=== PATIENT | male | born 1995 | race Caucasian/White ===

== ENCOUNTER 2016-12-13 14:05 | Emergency (ER) | payer BC ==
[~2016-12-13] VITALS: Ht 175.3 cm; Wt 79.1 kg
[2016-12-13 14:06] VITALS: TEMP 36.9; Ht 175.3 cm; Wt 79.1 kg
[2016-12-13] MEDS ORDERED: SODIUM CHLORIDE 0.9% 1000ML 1,000 ML IV STA (15:12)
[2016-12-13] MEDS ORDERED: KETOROLAC TROMETHAMINE 30 MG/ML VIAL IV STA (15:12)
[2016-12-13] MEDS ORDERED: MoRPHine SULFATE 4 MG/ML 1 ML CARP\\VIAL IV STA (15:12)
[2016-12-13] MEDS ORDERED: ONDANSETRON INJ 2 MG/ML 2 ML VIAL IV STA (15:12)
[2016-12-13] MEDS ORDERED: MoRPHine SULFATE 4 MG/ML 1 ML CARP\\VIAL IV PRN (15:15)
[2016-12-13] MEDS ORDERED: CETI10TA84 PO (15:36)
[2016-12-13 15:37] LABS: BASO % 0.5 %; BASO ABS # 0.07 K/uL (0-0.2); COMPLETE YES; EOS % 1.8 %; HEMATOCRIT 45.6 % (42-52); IG% 0.3 %; LYMPH % 26.2 %; LYMPH ABS # 3.38 K/uL (1.2-3.4); MEAN CELL VOLUME 88.2 fL (80-100); MEAN CORPUSCULAR HEMOGLOBIN 32.3 pg (25-34); MEAN CORPUSCULAR HGB CONC 36.6 g/dl (32-36); MONO % 8.4 %; NEUT % 62.8 %; PLATELET COUNT 246 K/uL (130-400); RED BLOOD COUNT 5.17 M/uL (4.7-6.1); WHITE BLOOD COUNT 12.88 K/uL (4.8-10.8)
[2016-12-13 15:55] LABS: ALT/SGPT 28 U/L (12-78); BLOOD UREA NITROGEN 15 mg/dl (7-18); BUN/CREATININE RATIO 12.4 (10-20); CALCIUM 9.1 mg/dl (8.5-10.1); CARBON DIOXIDE 22 mmol/L (21-32); CHLORIDE 107 mmol/L (98-107); GLUCOSE 147 mg/dl (70-99); POTASSIUM 3.5 mmol/L (3.5-5.1); SODIUM 141 mmol/L (136-145)
[2016-12-13 16:00] LABS: ALKALINE PHOSPHATASE 61 U/L (45-117); AST/SGOT 18 U/L (15-37)
[2016-12-13] MEDS ORDERED: PROMETHAZINE HCL INJ 25 MG/ML 1 ML VIAL ONE (16:00)
[2016-12-13] MEDS ORDERED: PROMETHAZINE HCL INJ 25 MG in SODIUM CHLORIDE 0.9% 50ML 50 ML IV STA (16:00)
[2016-12-13 16:02] LABS: URINE APPEARANCE CLEAR (CLEAR); URINE BILIRUBIN NEG (NEG); URINE COLOR DK YELLOW; URINE EPITHELIAL CELL AUTO 20-30 /lpf (0-5); URINE NITRITE NEG (NEG); URINE SPECIFIC GRAVITY 1.023 (1.000-1.030); UROBILINOGEN NEG (NEG)
--- NOTE | 2016-12-13 16:04 | DIAGNOSTIC IMAGING REPORT ---
KUB HISTORY: RLQ pain. Hematuria - possible stone? COMPARISON: None. FINDINGS: The bowel gas pattern is unremarkable. There are no dilated loops of small bowel to suggest an obstruction. There are a few punctate stones within the kidneys. No stones within the left ureter. There is a 2 mm punctate calcification within the right deep pelvis lateral to the coccyx. This could represent a ureterovesical junction stone. No pneumoperitoneum or pneumatosis. IMPRESSION: 1. A 2 mm punctate calcification within the right deep pelvis which may represent a ureterovesical junction stone. 2. Bilateral nephrolithiasis. Electronically signed by: Eddie Mccormick M.D. 12/13/2016 4:02 PM Dictated Date/Time: 12/13/2016 4:01 PM
[2016-12-13] MEDS ORDERED: OPTIRAY 320 IV PRN (16:15)
[2016-12-13 16:16] LABS: MANUAL MICROSCOPIC REQUIRED? NO; REVIEW REQ? NO
--- NOTE | 2016-12-13 17:13 | DIAGNOSTIC IMAGING REPORT ---
CT ABD/PELVIS IV CONTRAST ONLY CLINICAL HISTORY: Right lower quadrant abdominal pain COMPARISON STUDY: KUB dated 12/13/2016 TECHNIQUE: Following the IV administration of 116 mL of Optiray-320, CT scan of the abdomen and pelvis was performed from the lung bases to the proximal femurs. Images are reviewed in the axial, sagittal, and coronal planes. IV contrast was administered without complication. CT DOSE: 323.78 mGy.cm FINDINGS: Lower chest: The heart is normal in size and configuration, without pericardial effusion. The lung bases and pleural spaces are clear. Liver: The contrast-enhanced liver is normal in size, contour, and attenuation. There is no intrahepatic biliary ductal dilatation. The hepatic veins and portal veins are patent. Gallbladder: Unremarkable. Spleen: Normal in size and attenuation. Pancreas: Unremarkable. Adrenal glands: Unremarkable. Kidneys: 2 tiny right renal calculi are visualized. There is mild right-sided hydronephrosis and hydroureter. There is a 2 mm calculus at the level of the right ureterovesical junction. Bowel: There are no transition zones to indicate bowel obstruction. There is no evidence of acute appendicitis. There is no evidence of acute diverticulitis. Peritoneum: There is no intraperitoneal free air or abdominal ascites. There is a tiny fat-containing umbilical hernia. Vasculature: The abdominal aorta is normal in course and caliber. Adenopathy: None. Pelvic viscera: The bladder, and pelvic viscera are unremarkable. Skeletal structures: No destructive osseous lesions are seen. IMPRESSION: 1. Tiny right renal calculi 2. 2 mm calculus at the level of the right ureteral vesicle junction with mild secondary obstructive changes 3. Normal appendix 4. No evidence of bowel obstruction. No evidence of free air. Electronically signed by: Carroll Quintanilla M.D. 12/13/2016 5:12 PM Dictated Date/Time: 12/13/2016 5:07 PM
[2016-12-13] MEDS ORDERED: OXYC1TAB3 PO (17:33)
[2016-12-13] MEDS ORDERED: ONDA4TAB10 SL (17:33)
--- NOTE | 2016-12-13 17:47 | EMERGENCY ROOM VISIT NOTE ---
History First contact with patient: 15:06 Chief Complaint: ABDOMINAL PAIN Stated Complaint: LOWER RT ABD. PAIN, VOMITING Nursing Triage Summary: N/V/D, RLQ pain since 1130 today. History of Present Illness The patient is a 21 year old male who presents to the Emergency Room with complaints of right lower quadrant abdominal pain that is constant within the right lower quadrant and lower abdominal region. The patient reports that he had mild nausea last night which quickly resolved. He reports that around 11: 30 AM today, the abdominal pain started to worsen. He now reports that any movement, including walking and bending over, worsens his discomfort. He rates his pain an 8 out of 10. He denies any pain radiating into the back. He denies any fevers or chills. The patient denies any prior history of GI disease except for mild GERD. He denies any urinary symptoms. His stools were soft this morning. He denies any blood or mucus. He has had several episodes of bilious vomiting. Review of Systems HEENT: Denies dizziness, visual problems, hearing loss, tinnitus. Denies difficulty swallowing or oral lesions. PULMONARY: Denies cough, shortness of breath, sputum production or hemoptysis. CARDIOVASCULAR: Denies chest pain, palpitations, dyspnea on exertion, orthopnea or peripheral edema. GASTROINTESTINAL: See history of present illness GENITOURINARY: Denies dysuria, frequency, urgency or nocturia. NEUROLOGIC: Denies history of epilepsy, CVA, TIA or chronic headaches. MUSCULOSKELETAL: Denies history of joint tenderness/swelling. SKIN: Denies rashes or lesions. PSYCHIATRIC: Denies history of depression or mental illness. ENDOCRINE: Denies history of diabetes or thyroid disorders. Past Medical/Surgical History Medical Problems: (1) Asthma Surgical Problems: (1) History of wisdom tooth extraction Family History No significant family history Social History Smoking Status: Never Smoker Alcohol Use: occasionally Marital Status: single Occupation Status: [employer] student Current/Historical Medications Scheduled Cetirizine (Zyrtec), 10 MG PO DAILY Ondasetron Odt (Zofran Odt), 4 MG SL Q6H Scheduled PRN Oxycodone Ir (Roxicodone Ir), 1-2 TAB PO Q4H PRN for Pain Allergies Coded Allergies: No Known Allergies (Unverified , 12/13/16) Physical Exam Vital Signs Date Time Temp Pulse Resp B/P Pulse Ox O2 Delivery O2 Flow Rate FiO2 12/13/16 16:50 91 15 122/75 100 Room Air 12/13/16 15:35 86 16 141/83 100 12/13/16 14:06 36.9 89 19 151/87 100 Room Air Physical Exam CONSTITUTIONAL: Healthy and well nourished. Alert and oriented X 3 with positive affect. She appears in moderate discomfort from pain and nausea. HEENT: Normocephalic, atraumatic. Pupils equal, round and reactive. Ears and nares are clear. No scleral icterus or conjunctival injection/pallor. NECK: Full active range of motion without discomfort. No nuchal rigidity. LYMPHATICS: No adenopathy appreciated. RESPIRATORY: Clear to auscultation bilaterally with no wheezing, crackles, rhonchi or stridor. CARDIOVASCULAR: Regular rate and rhythm with no murmurs, rubs or gallops. GASTROINTESTINAL: Bowel sounds present in all quadrants. Patient has been positive McBurney's point tenderness. Negative Rincon I and. Negative Rovsing sign. Negative CVA tenderness. Positive psoas sign. Positive heel tap. No rigidity, guarding or rebound. MUSCULOSKELETAL: Full range of motion of all joints without discomfort. INTEGUMENTARY: No rash or other significant dermatologic conditions noted. HEMATOLOGIC: No ecchymosis or petechiae noted. NEUROLOGIC: No focal neurologic deficits noted. Medical Decision & Procedures ER Provider Diagnostic Interpretation: Initial KUB shows a possible 2 mm calcification near the bladder/UVJ region. Radiologist report is as follows: KUB HISTORY: RLQ pain. Hematuria - possible stone? COMPARISON: None. FINDINGS: The bowel gas pattern is unremarkable. There are no dilated loops of small bowel to suggest an obstruction. There are a few punctate stones within the kidneys. No stones within the left ureter. There is a 2 mm punctate calcification within the right deep pelvis lateral to the coccyx. This could represent a ureterovesical junction stone. No pneumoperitoneum or pneumatosis. IMPRESSION: 1. A 2 mm punctate calcification within the right deep pelvis which may represent a ureterovesical junction stone. 2. Bilateral nephrolithiasis. Enhanced CT of the abdomen and pelvis does not show any evidence for acute appendicitis. A 2 mm right UVJ stone is again seen. Radiologist report is as follows: CT ABD/PELVIS IV CONTRAST ONLY CLINICAL HISTORY: Right lower quadrant abdominal pain COMPARISON STUDY: KUB dated 12/13/2016 TECHNIQUE: Following the IV administration of 116 mL of Optiray-320, CT scan of the abdomen and pelvis was performed from the lung bases to the proximal femurs. Images are reviewed in the axial, sagittal, and coronal planes. IV contrast was administered without complication. CT DOSE: 323.78 mGy.cm FINDINGS: Lower chest: The heart is normal in size and configuration, without pericardial effusion. The lung bases and pleural spaces are clear. Liver: The contrast-enhanced liver is normal in size, contour, and attenuation. There is no intrahepatic biliary ductal dilatation. The hepatic veins and portal veins are patent. Gallbladder: Unremarkable. Spleen: Normal in size and attenuation. Pancreas: Unremarkable. Adrenal glands: Unremarkable. Kidneys: 2 tiny right renal calculi are visualized. There is mild right-sided hydronephrosis and hydroureter. There is a 2 mm calculus at the level of the right ureterovesical junction. Bowel: There are no transition zones to indicate bowel obstruction. There is no evidence of acute appendicitis. There is no evidence of acute diverticulitis. Peritoneum: There is no intraperitoneal free air or abdominal ascites. There is a tiny fat-containing umbilical hernia. Vasculature: The abdominal aorta is normal in course and caliber. Adenopathy: None. Pelvic viscera: The bladder, and pelvic viscera are unremarkable. Skeletal structures: No destructive osseous lesions are seen. IMPRESSION: 1. Tiny right renal calculi 2. 2 mm calculus at the level of the right ureteral vesicle junction with mild secondary obstructive changes 3. Normal appendix 4. No evidence of bowel obstruction. No evidence of free air. Laboratory Results 12/13/16 15:30 Red Blood Count 5.17, Mean Corpuscular Volume 88.2, Mean Corpuscular Hemoglobin 32.3, Mean Corpuscular Hemoglobin Concent 36.6, Mean Platelet Volume 11.0, Neutrophils (%) (Auto) 62.8, Lymphocytes (%) (Auto) 26.2, Monocytes (%) (Auto) 8.4, Eosinophils (%) (Auto) 1.8, Basophils (%) (Auto) 0.5, Neutrophils # (Auto) 8.08, Lymphocytes # (Auto) 3.38, Monocytes # (Auto) 1.08, Eosinophils # (Auto) 0.23, Basophils # (Auto) 0.07 12/13/16 15:30 Test 12/13/16 00:00 12/13/16 15:30 Urine Color DK YELLOW Urine Appearance CLEAR (CLEAR) Urine pH 5.0 (4.5-7.5) Urine Specific [place] 1.023 (1.000-1.030) Urine Protein 1+ (NEG) Urine Glucose (UA) NEG (NEG) Urine Ketones NEG (NEG) Urine Occult Blood 3+ (NEG) Urine Nitrite NEG (NEG) Urine Bilirubin NEG (NEG) Urine Urobilinogen NEG (NEG) Urine Leukocyte Esterase NEG (NEG) Urine WBC (Auto) 1-5 /hpf (0-5) Urine RBC (Auto) 10-30 /hpf (0-4) Urine Hyaline Casts (Auto) 5-10 /lpf (0-5) Urine Epithelial Cells (Auto) 20-30 /lpf (0-5) Urine Bacteria (Auto) NEG (NEG) White Blood Count 12.88 K/uL (4.8-10.8) Red Blood Count 5.17 M/uL (4.7-6.1) Hemoglobin 16.7 g/dL (14.0-18.0) Hematocrit 45.6 % (42-52) Mean Corpuscular Volume 88.2 fL (80-100) Mean Corpuscular Hemoglobin 32.3 pg (25-34) Mean Corpuscular Hemoglobin Concent 36.6 g/dl (32-36) Platelet Count 246 K/uL (130-400) Mean Platelet Volume 11.0 fL (7.4-10.4) Neutrophils (%) (Auto) 62.8 % Lymphocytes (%) (Auto) 26.2 % Monocytes (%) (Auto) 8.4 % Eosinophils (%) (Auto) 1.8 % Basophils (%) (Auto) 0.5 % Neutrophils # (Auto) 8.08 K/uL (1.4-6.5) Lymphocytes # (Auto) 3.38 K/uL (1.2-3.4) Monocytes # (Auto) 1.08 K/uL (0.11-0.59) Eosinophils # (Auto) 0.23 K/uL (0-0.5) Basophils # (Auto) 0.07 K/uL (0-0.2) RDW Standard Deviation 38.5 fL (36.4-46.3) RDW Coefficient of Variation 12.0 % (11.5-14.5) Immature Granulocyte % (Auto) 0.3 % Immature Granulocyte # (Auto) 0.04 K/uL (0.00-0.02) Anion Gap 12.0 mmol/L (3-11) Est Creatinine Clear Calc Drug Dose 97.4 ml/min Estimated GFR () 99.6 Estimated GFR (Non- 85.9 BUN/Creatinine Ratio 12.4 (10-20) Calcium Level 9.1 mg/dl (8.5-10.1) Total Bilirubin 0.5 mg/dl (0.2-1) Direct Bilirubin < 0.1 mg/dl (0-0.2) Aspartate Amino Transf (AST/SGOT) 18 U/L (15-37) Alanine Aminotransferase (ALT/SGPT) 28 U/L (12-78) Alkaline Phosphatase 61 U/L (45-117) Total Protein 7.9 gm/dl (6.4-8.2) Albumin 4.4 gm/dl (3.4-5.0) Lipase 93 U/L (73-393) The above labs were reviewed. Medications Administered Medications (Trade) Dose Ordered Sig/Andrews Route Start Time Stop Time Status Last Admin Dose Admin Ketorolac Tromethamine 30 mg 30 mg NOW STAT IV 12/13/16 15:12 12/13/16 15:15 DC 12/13/16 15:30 30 MG Sodium Chloride (Nss 1000ml) 1,000 ml @ 999 mls/hr Q1H1M STAT IV 12/13/16 15:12 12/13/16 16:12 DC 12/13/16 15:31 999 MLS/HR Ondansetron HCl (Zofran Inj) 4 mg NOW STAT IV 12/13/16 15:12 12/13/16 15:15 DC 12/13/16 15:30 4 MG Morphine Sulfate (MoRPHine SULFATE INJ) 4 mg NOW STAT IV 12/13/16 15:12 12/13/16 15:15 DC 12/13/16 15:31 4 MG Promethazine HCl (Phenergan Inj) 25 mg STK-MED ONCE .ROUTE 3/22/17 16:00 12/13/16 16:05 DC 12/13/16 16:07 25 MG Procedure 1. IV hydration: The patient received a liter normal saline bolus 2. IV medications: The patient initially was administered Toradol 30 mg, morphine 4 mg and Zofran 4 mg IVP. Because of persistent nausea and vomiting, he was then administered Phenergan 25 mg IVP. ED Course Patient history and physical exam were performed. Nurse's notes were reviewed. Vital signs were reviewed and normal. The patient is currently afebrile. IV was established, and labs were drawn. Review of labs shows a leukocytosis with a left shift and bandemia. Urinalysis shows hematuria without signs of infection. The patient was hydrated with normal saline, and received IV medications as discussed in the previous Procedure section. Then approximately 10 minutes after being given IV Zofran, the patient vomited his oral contrast. I asked his nurse to refrain from further oral contrast into his antiemetics had a chance to work. Because he was still further nauseated, he was given Phenergan 25 mg IVP. I was also advised that the patient had a large amount of blood in his urine dip. Although the patient does have symptoms concerning for appendicitis, I did elect to get a KUB x-ray which showed a possible 2 mm right UVJ stone. On reexam, the patient did report feeling somewhat better with minimal nausea and pain rated a 4 out of 10. Repeat examination still showed his oral exam findings concerning for possible appendicitis. At this point, a CT of the abdomen and pelvis with IV contrast was further ordered, and showed no evidence for acute appendicitis or other acute findings. On reassessment, the patient reported significant relief of his pain and nausea , rating his discomfort a 2 out of 10 without nausea. He requested discharge home. The patient was instructed to drink plenty of fluids. A urine strainer was provided. He also received prescriptions for OxyIR 5 mg and Zofran 4 mg ODT. He was instructed to return to the emergency department for any uncontrollable pain, vomiting or developing fever. The patient was happy with plan of care, and voiced understanding of all discharge instructions. Medical Decision Patient presents with symptoms that were most consistent with acute appendicitis. However, imaging studies today definitely show a 2 mm right UVJ stone. CT scan does not show any evidence for acute appendicitis. Patient does have a moderate leukocytosis with left shift and bandemia. At this point, I do not feel that surgical consultation is warranted. A CT scan is otherwise unremarkable except for the ureteral calculus. Other labs are also not suggestive of pancreatitis or cholecystitis. [facility] Monitoring Program Search Results: patient reviewed within database, no issues identified Impression Primary Impression: Ureteral calculus, right Departure Information Prescriptions Ondasetron Odt (ZOFRAN ODT) 4 Mg Tab 4 MG SL Q6H for Nausea, #10 TAB Prov: Ang Goodwin PA 12/13/16 Oxycodone Ir (Roxicodone Ir) 5 Mg Tab 1-2 TAB PO Q4H Y for Pain, #15 TAB For Initial Treatment Prov: Ang Goodwin PA 12/13/16 Referrals No Doctor, Assigned (PCP) Patient Instructions [facility]
[2016-12-13 18:25] VITALS: BP 133/86; PULSE 91; O2SAT 99
== END 2016-12-13 18:25 | disposition home or self-care (01) ==
LOC: C.EDB 14:08
DX: N20.1 Calculus of ureter (principal); K21.9 Gastro-esophageal reflux disease without esophagitis; J45.909 Unspecified asthma, uncomplicated